=== PATIENT | female | born 1965 | race Caucasian/White ===

== ENCOUNTER → 2018-01-05 | Outpatient (CLI) | payer OTHER ==
--- NOTE | 2018-01-05 12:09 | DIAGNOSTIC IMAGING REPORT ---
SI JOINTS 3 OR MORE VIEWS CLINICAL HISTORY: M54.4 pain COMPARISON STUDY: None FINDINGS: Mild degenerative sclerosis of the sacroiliac joints. No evidence of bony ankylosis. Sacral foramina are symmetric bilaterally. IMPRESSION: Mild degenerative sclerosis of the sacroiliac joints bilaterally. No evidence for bony ankylosis. The above report was generated using voice recognition software. It may contain grammatical, syntax or spelling errors. Electronically signed by: Carmelo Sun M.D. 01/05/2018 12:08 PM Dictated Date/Time: 01/05/2018 12:07 PM
--- NOTE | 2018-01-05 12:27 | DIAGNOSTIC IMAGING REPORT ---
L-SPINE MIN 4 VIEWS ROUTINE HISTORY: Pain. Neuropathy. M54.5 COMPARISON: None. FINDINGS: There is no fracture. No subluxation. Disc spaces are preserved. IMPRESSION: No fracture or subluxation within the lumbar spine. The above report was generated using voice recognition software. It may contain grammatical, syntax or spelling errors. Electronically signed by: Carmelo Sun M.D. 01/05/2018 12:25 PM Dictated Date/Time: 01/05/2018 12:25 PM
== END | disposition home or self-care (01) ==
LOC: C.RAD1850 11:33
PROVIDERS: ATTEND Family Medicine
DX: M54.5 Low back pain (principal); Z85.3 Personal history of malignant neoplasm of breast; Z88.0 Allergy status to penicillin; Z88.1 Allergy status to other antibiotic agents

== ENCOUNTER → 2018-02-03 | Day surgery (SDC) | payer OTHER ==
[2018-01-27 09:08] VITALS: Ht 154.9 cm; Wt 56.8 kg
[~2018-02-03] VITALS: Ht 154.9 cm; Wt 56.8 kg
[~2018-02-03] MED LIST: AMT25 PO; IOPAMIDOL INJ 61% 15 ML VIAL ONE; LIDOCAINE HCL 1% MPF 5 ML VIAL ONE; NAPR-1169 PO; PRED20TA PO; SODIUM CHLORIDE 0.9% INJ 10 ML VIAL ONE; flexeril
--- NOTE | 2018-02-03 12:24 | History & Physical Bridge - [place] ---
H&P Re-Evaluation Bridge Note: I have examined the patient, reviewed the History & Physical and in the interval since the performance of the History & Physical I have noted the following changes of clinical significance: No changes noted
--- NOTE | 2018-02-03 12:50 | [facility] Post Operative Brief Note ---
Immediate Operative Summary Operative Date February 03, 2018. Pre-Operative Diagnosis LEFT S1 LUMBAR RADICULOPATHY Post-Operative Diagnosis LEFT S1 LUMBAR RADICULOPATHY Procedure(s) Performed LUMBAR EPIDURAL STEROID INJECTION Surgeon DR. Meliton MONTALVO Diffusion Furnace Operator Surgeon(s) None Estimated Blood Loss 0 Findings Consistent with Post-Op Diagnosis Specimens NA Drains None Anesthesia Type Local Disposition Disposition:
[2018-02-03 12:51] VITALS: TEMP 36
--- NOTE | 2018-02-03 12:51 | Discharge Instructions ---
Discharge Instructions Date of Service February 03, 2018. Visit Reason for Visit: Lumbar Radiculopathy Discharge Discharge Diagnosis / Problem: left leg pain Discharge Goals Goal(s): Decrease discomfort, Improve function Medications Stopped Medications Name(s): naproxyn Activity Recommendations Activity Limitations: resume your previous activity Anesthesia . Post Anesthesia Instructions: If you have had General Anesthesia or IV Sedation: * Do not drive today. * Resume driving when surgeon permits. * Do not make important decisions or sign legal documents today. * Call surgeon for: 1. Temperature elevations greater than 101 degrees F. 2. Uncontrollable pain. 3. Excessive bleeding. 4. Persistent nausea and vomiting. 5. Medication intolerance (nausea, vomiting or rash). * For nausea and vomiting use only clear liquids such as: tea, soda, bouillon until nausea subsides, then gradually increase diet as tolerated. * If you have any concerns or questions, call your surgeon's office. If physician is unavailable and it is an emergency, call 911 or go to the nearest emergency room. . Diet Recommendations Recommended Home Diet: resume previous diet Procedures Procedures Performed: LUMBAR EPIDURAL STEROID INJECTION Pending Studies Studies pending at discharge: no Medical Emergencies . Who to Call and When: Medical Emergencies: If at any time you feel your situation is an emergency, please call 911 immediately. . Non-Emergent Contact Non-Emergency issues call your: Specialist . . "Provider Documentation" section prepared by Douglas Rosen. .
--- NOTE | 2018-02-03 13:25 | OPERATIVE REPORT ---
DATE OF OPERATION: 02/03/2018 PREOPERATIVE DIAGNOSIS: Left S1 radiculopathy secondary to lumbar disk disease. POSTOPERATIVE DIAGNOSIS: Left S1 radiculopathy secondary to lumbar disk disease. PROCEDURE: Left paramedian L5-S1 intralaminar epidural steroid injection under fluoroscopic guidance. INDICATIONS: The patient is a 53-year-old white female who has left S1 radicular pain radiating down the leg, has not responded to conservative measures. She has been doing core exercises and has not helped. She presents today for an epidural injection to provide her with relief. PHYSICAL EXAMINATION: The patient is uncomfortable while sitting in a chair. She has normal lower extremity strength. She has intact sensation distally and she has a positive seated straight leg raise of her left lower extremity. CONSENT: Verbal and written consent was obtained from the patient. Risks and benefits were reviewed. Risks include but are not limited to epidural abscess, epidural hematoma, allergic reaction, dural puncture. The patient wishes to proceed. DESCRIPTION OF PROCEDURE: The patient was taken back to the special procedures room of [facility]. She was maintained in a prone position. Backside was cleansed with Betadine x3 and a dry sterile dressing was applied. Fluoroscope was used to identify the L5-S1 intralaminar space. Overlying skin on the left side was anesthetized with 4 mL of lidocaine 1% with a 25 gauge 1.5-inch needle. A 22-gauge 3.5 inch Tuohy needle was then directed down towards the intralaminar space. It was advanced under lateral fluoroscopic guidance. Loss of resistance was noted at a depth of 5 cm. Isovue-300 contrast 1 mL was injected which demonstrated it to have some superior fecal spread. She then underwent retraction of the needle a few millimeters and reinjected show it to be in the epidural space outlining the S1 nerve root. She then underwent injection after negative aspiration of 40 mg of Depo-Medrol and 4 mL of preservative free sodium chloride. DISPOSITION: 1. The patient is taken out into the discharge recovery area where she will be discharged home once discharge criteria are met. 2. Follow up in the [facility] office in 4 weeks' time. I attest to the content of the Intraoperative Record and any orders documented therein. Any exception s are noted below.
[2018-02-03 13:33] VITALS: BP 121/84; PULSE 68; O2SAT 99
== END | disposition home or self-care (01) ==
LOC: X.SURG 11:42
PROVIDERS: ATTEND Physical Medicine & Rehabilitation
DX: M54.17 Radiculopathy, lumbosacral region (principal); Z85.3 Personal history of malignant neoplasm of breast; Z90.13 Acquired absence of bilateral breasts and nipples; Z88.1 Allergy status to other antibiotic agents; Z88.0 Allergy status to penicillin; Z82.49 Family history of ischemic heart disease and other diseases of the circulatory system; Z82.3 Family history of stroke; Z80.0 Family history of malignant neoplasm of digestive organs